=== PATIENT | male | born 1970 | race Caucasian/White ===

== ENCOUNTER 2018-05-25 15:11 | Emergency (ER) | payer OTHER ==
[~2018-05-25] VITALS: Ht 177.8 cm; Wt 113.6 kg
[~2018-05-25 15:11] MED LIST: FLEXERIL OR; HYDROCO/APAP1 TA1 OR; PROMETHAZINE25 MG OR; PROTONIX40 MG OR
[2018-05-25 15:40] LABS: HEMATOCRIT 42.6 % (39.0-50.0); HEMOGLOBIN 15.1 g/dl (14.0-18.0); IMMATURE GRANULOCYTES 0.3 % (0.0-1.0); MEAN CORPUSCULAR HGB 34.9 pG CALC (26.0-32.0); MEAN CORPUSCULAR HGB CONC 35.4 g/L CALC (32.0-36.0); NEUT# 4.42 thou/uL (1.82-7.42); RED BLOOD COUNT 4.33 mill/uL (4.70-6.10); RED CELL DISTRI WIDTH 13.7 % (11.5-15.5)
[2018-05-25 15:41] LABS: MEAN CELL VOLUME 98.4 fL CALC (80.0-100.0)
[2018-05-25 15:55] LABS: ALBUMIN 4.7 g/dL (3.2-5.0); ALKALINE PHOSPHATASE 72 u/l (38-126); ANION GAP 13 (6-22 (CALC)); BILIRUBIN, TOTAL 0.8 mg/dL (0.0-1.4); BUN 12 mg/dL (9-20); BUN/CREATININE RATIO 15 (12-20 (CALC)); CARBON DIOXIDE 28 mmol/l (22-30); CHLORIDE 104 mmol/l (95-108); CREATININE 0.8 mg/dL (0.7-1.3); GFR > 60 ML/MIN (>=60 (CALC)); GFR FOR AFR.AMER. > 60 ML/MIN (>=60 (CALC)); LIPASE 118 u/l (23-300); POTASSIUM 3.8 mmol/l (3.5-5.1); SGOT/AST 33 u/l (17-59); SGPT/ALT 46 u/l (21-72); SODIUM 140 mmol/l (137-146); TOTAL PROTEIN 8.2 g/dL (6.3-8.2)
[2018-05-25] MEDS ORDERED: TORADOL PO (16:35)
[2018-05-25 17:01] VITALS: BP 129/80
== END 2018-05-25 17:10 | disposition home or self-care (01) | DRG 313 ==
LOC: ED 15:11
PROVIDERS: Emergency Medicine
DX: R07.89 Other chest pain (principal)